=== PATIENT | female | born 1995 | race African-American/Black ===

== ENCOUNTER 2018-07-21 18:30 | Emergency (ER) | payer OTHER ==
[~2018-07-21] VITALS: Ht 152.4 cm; Wt 85.9 kg
--- NOTE | 2018-07-21 19:10 | NUR ---
ASSESSMENT MADE. CHART UP FOR MD TO SEE.
--- NOTE | 2018-07-21 20:17 | NUR ---
PA AT BEDSIDE TO ASSESS AT THIS TIME. PT TOLERATED WELL.
--- NOTE | 2018-07-21 20:38 | NUR ---
EDMD AT BEDSIDE TO DO PELVIC EXAM AT THIS TIME. PT TOLERATED WELL.
[2018-07-21] MEDS ORDERED: CEFAZOLIN 1,000 MG ONE (20:41)
--- NOTE | 2018-07-21 20:48 | NUR ---
PT MEDICATED PER EMAR. PT TOLERATED WELL.
[2018-07-21] MEDS ORDERED: CEFAZOLIN 1,000 MG IM ONE (21:00)
[2018-07-21 21:18] VITALS: BP 128/90
--- NOTE | 2018-07-21 21:31 | NUR ---
PT GIVEN DC INSTRUCTIONS AND SCRIPT. PT EDUCATED REGARDING DC MEDICATION. PT AMB TO DC WITH STEADY GAIT. NO ACUTE DISTRESS AT DC.
== END 2018-07-21 21:34 | disposition home or self-care (01) ==
LOC: ED 21:31
DX: N76.2 Acute vulvitis (principal)
CPT/HCPCS: 96372; 99283; J0690

== ENCOUNTER 2018-08-12 06:48 | Emergency (ER) | payer OTHER ==
[~2018-08-12] VITALS: Ht 152.4 cm; Wt 84.0 kg
[2018-08-12 06:50] VITALS: BP 119/84
[2018-08-12] MEDS ORDERED: LIDOCAINE-MPF 1%, 5ML ONE (07:16)
--- NOTE | 2018-08-12 07:34 | NUR ---
LATE NOTE ENTRY FOR 0659: Pt presents to Ed with c/o right distal labial cyst. Pt states, "I have had it for about 2 months. I was here three weeks ago and was given antibitiocs. It got better with the antibiotics but then it came back. It hurts to walk, I am walking like a penguin." Pt's boyfriend at bedside. Pt gives verbal consent for boyfriend to be at bedside. Pt denies n/v/d, fevers, flank pain, pain with urination, increased frequency, cp, or sob. NADN. [employer] cart set up at bedside.
--- NOTE | 2018-08-12 07:37 | NUR ---
ED PA and ED RN at bedside for examination and procedure. NADN. No needs expressed. Pt tolerated procedure with out complications.
[2018-08-12 07:56] LABS: HCG UR SG 1.031 (1.003-1.030)
--- NOTE | 2018-08-12 08:25 | NUR ---
Patient given discharge instructions and they have confirmed that they understand the instructions. Patient ambulatory with steady gait.
== END 2018-08-12 08:27 | disposition home or self-care (01) ==
LOC: ED 07:29
DX: N75.1 Abscess of Bartholin's gland (principal)
CPT/HCPCS: 56420; 81025; 99283

== ENCOUNTER 2018-09-03 15:11 | Emergency (ER) | payer OTHER ==
[~2018-09-03] VITALS: Ht 152.4 cm; Wt 85.7 kg
[2018-09-03 15:22] VITALS: BP 137/101
[2018-09-03] MEDS ORDERED: LIDOCAINE-MPF 1%, 5ML INFIL ONE (15:30)
[2018-09-03] MEDS ORDERED: LIDOCAINE-MPF 1%, 5ML ONE (16:36)
--- NOTE | 2018-09-03 16:57 | NUR ---
ASSITED MD AVILA WITH I & D. SHAILA TOLERATED WELL. BOYFRIEND AT BS DURING PROCEDURE
== END 2018-09-03 17:37 | disposition home or self-care (01) ==
LOC: ED 17:31
DX: N76.4 Abscess of vulva (principal)
CPT/HCPCS: 56405; 99284